=== PATIENT | female | born 1970 | race Caucasian/White ===

== ENCOUNTER → 2023-08-10 14:51 | Outpatient (REF) | payer BC, SELFPAY | LOC: RAD 14:51 | PROVIDERS: ATTENDING PHYSICIAN Nurse Practitioner Family | DX: M79.644 Pain in right finger(s) (principal) | CPT/HCPCS: 73140 ==

== ENCOUNTER → 2024-04-02 17:58 | Outpatient (REF) | payer BC, SELFPAY | LOC: WDC 17:58 | PROVIDERS: ATTENDING PHYSICIAN Obstetrics & Gynecology; FAMILY PHYSICIAN Nurse Practitioner Family | DX: Z12.31 Encounter for screening mammogram for malignant neoplasm of breast (principal) | CPT/HCPCS: 77063; 77067 ==

== ENCOUNTER 2024-10-12 18:28 | Emergency (ER) | payer BC, SELFPAY ==
[2024-10-12 18:35] VITALS: BP 124/79
[2024-10-12 18:53] LABS: % Basophils 0.9 % (0-2); % Eosinophils 0.7 % (0-6); % Lymphocytes 33.5 % (20.5-51.1); % Monocytes 5.7 % (1.7-9.3); % Neutrophils 59.2 % (42.2-75.2); Absolute Basophils 0.1 10^3/uL (0-0.2); Absolute Lymphocytes 1.9 10^3/uL (1.2-3.4); Absolute Monocytes 0.3 10^3/uL (0.1-0.6); Absolute Neutrophils 3.3 10^3/uL (1.4-6.5); Hematocrit 38.6 % (37.0-47.0); Hemoglobin 13.3 g/dL (12.0-16.0); Mean Corp Hgb Conc. 34.5 g/dL (33.0-37.0); Mean Corpuscular Hgb 30.6 pg (27.0-31.0); Mean Corpuscular Volume 88.9 fL (81.0-99.0); Mean Platelet Volume 9.5 fL (7.4-10.4); Nucleated Red Blood Cells % 0 %; Platelet Count 234 10^3/uL (130-400); Red Blood Cell Count 4.34 10^6/uL (4.20-5.40); Red Cell Dist. Width 12.3 % (11.5-14.5); White Blood Cell Count 5.6 10^3/uL (4.8-10.8)
[2024-10-12 18:55] LABS: Urine Albumin Negative (Neg - Trace); Urine Bilirubin Negative (Negative); Urine Character Clear (Clear); Urine Color Yellow; Urine Glucose Negative (Negative); Urine Ketone Negative (Negative); Urine Leukocyte 3+ (Negative); Urine Nitrite Negative (Negative); Urine Occult Blood 2+ (Negative); Urine Urobilinogen Negative (Neg - 1+)
[2024-10-12 19:04] LABS: HCG, Serum Qualitative Screen Negative
[2024-10-12 19:05] LABS: Urine Squamous Cell >30 /LPF (Few)
[2024-10-12 19:06] LABS: Urine White Cell 30-40 /HPF (0-5)
[2024-10-12 19:08] LABS: ALT (SGPT) 37 U/L (0-35); AST (SGOT) 24 U/L (14-36); Albumin 4.4 g/dl (3.5-5.0); Alkaline Phosphatase 68 U/L (38-126); Blood Urea Nitrogen 16 mg/dl (7-17); Calcium 9.1 mg/dl (8.4-10.2); Carbon Dioxide 22 mmol/L (22-30); Chloride 109 mmol/L (98-107); Glucose 123 mg/dl (70-99); Potassium 4.4 mmol/L (3.5-5.1); Sodium 140 mmol/L (135-145); Total Bilirubin 0.5 mg/dl (0.2-1.3); Total Protein 7.4 g/dl (6.3-8.2); Urine Bacteria Moderate (Negative); eGFR 53.13
[2024-10-12 19:09] LABS: Lipase 231 U/L (23-300)
--- NOTE | 2024-10-12 22:22 | ED.GENMED ---
History of Present Illness
General
Chief Complaint: Abdominal Pain
Source: patient
Exam Limitations: none
Time Seen by Provider: 10/12/24 21:08
Nursing documentation reviewed up to this point in time: agreed with
History of Present Illness
History of Present Illness:
54-year-old female presenting to the emergency department today with concerns of constipation over the past 10 days. Has tried MiraLAX 2 enemas and mag citrate without improvement. She does have some ongoing bloating denies any nausea vomiting no
fevers.
Past History
Past History
ED Past Medical History: Hypothyroidism
ED Past Surgical History: Orthopedic
Review of Systems
Review of Systems
Allergies reviewed?: Yes
All Other Systems: ROS reviewed and negative except as documented in HPI and ROS
Phy Exam
Physical Exam
Physical Exam:
GENERAL: Alert , in no apparent distress
EYE: pupils equal and reactive
NECK: Supple, no significant adenopathy.
ENT: o/p clr, mmm.
CARDIAC: Regular rate and rhythm .
LUNGS: Clear breath sounds bilaterally, no acute respiratory distress, no wheezes/rales/rhonchi
ABDOMEN: Soft, without focal tenderness, no r/g, no cvat
NEUROLOGICAL: Alert and oriented, no focal neuro deficits
SKIN: Warm and dry, skin intact.
MUSCULOSKELETAL: No edema, well perfused.
PSYCH: Normal and appropriate interaction.
Course
Orders/Labs/Results
Orders:
Orders
10/12/24 18:38
Obstruct Series W/PA Chest [CR Obstruct Series W/pa Chest] Urgent
Comment:
Reason For Exam: CONSTIPATION
10/12/24 18:39
Test Result ONCE
10/12/24 18:43
Complete Blood Count/With Diff Urgent
Comprehensive Metabolic Panel Urgent
HCG, Serum Qualitative Screen Urgent
Comment: Notify provider if positive test present
Lipase Urgent
Urinalysis Reflex To Culture Urgent
Date Specimen was Collected: 10/12/24
Time Specimen was Collected: 18:39
Urine Microscopic Reflex Cult Urgent
Urine Culture Urgent
NITA Source: U
Specimen Description:
Date Specimen was Collected: 10/12/24
Time Specimen was Collected: 18:39
Abnormal Lab Results
10/12/24
18:43
Chloride 109 H mmol/L
(98-107)
Creatinine 1.2 H mg/dL
(0.6-1.0)
Glucose 123 H mg/dl
(70-99)
ALT 37 H U/L
(0-35)
Ur Occult Blood Reflex 2+ A
(Negative)
Leukocyte Esterase Rfl 3+ A
(Negative)
Urine RBC 3-6 A /HPF
(0-2)
Urine WBC (Reflex) 30-40 A /HPF
(0-5)
Urine Bacteria (Reflex) Moderate A
(Negative)
10/12/24 18:43
10/12/24 18:43
Vital Signs
Initial and Last Documented VS:
Initial Vital Signs
Temp Pulse Resp BP Pulse Ox
98.4 F 87 16 124/79 98
10/12/24 18:35 10/12/24 18:35 10/12/24 18:35 10/12/24 18:35 10/12/24 18:35
Last Documented Vital Signs
Temp Pulse Resp BP Pulse Ox
98.4 F 87 16 124/79 98
10/12/24 18:35 10/12/24 18:35 10/12/24 18:35 10/12/24 18:35 10/12/24 18:35
MDM/Problems Addressed
MDM/Problems Addressed:
54-year-old female presenting to the emergency department today with concerns of decreased bowel movements over the past 10 days has had some bowel movements but does feel some degree of ongoing bloating. No nausea or vomiting. Has taken multiple
medications to help with symptoms. Here she is in no distress labs unremarkable abdomen is soft. The usefulness of a CT scan was explained to the patient. It was offered to get a CT scan today she claims that she would rather try some more
treatments at home but otherwise will come back if symptoms worsened. I feel this is reasonable. Otherwise she was advised to follow-up closely with GI. Return precautions given.
*Critical Care Note
Total Time (30-74mins, 75-104mins- exclusive of procedures): Not Applicable
ED Attending Note
-
Portions of this chart may have been created with voice recognition software.� Occasional wrong word or��sound alike� substitutions may have occurred due to the inherent limitations of voice recognition software.
Discharge Plan
Departure
Patient Disposition: Home (Routine Discharge)
Date of Disposition: 10/12/24
Time of Disposition: 22:27
Patient with high blood pressure during this ER visit?: No
Condition: Good
Covid-19: Not Applicable
Discharge Problem:
Constipation
Instructions: Constipation, Adult (DC)
Prescriptions:
New
lactulose 10 gram/15 mL solution
10 g PO DAILY PRN (Reason: Constipation) Qty: 1200 0RF
bisacodyl [Dulcolax (bisacodyl)] 10 mg suppository
10 mg ID DAILY PRN (Reason: constipation) Qty: 12 0RF
No Action
oxycodone-acetaminophen 5 MG/325 MG tablet
1 tab PO Q6HPRN PRN (Reason: pain) Qty: 12 0RF
Referrals:
Lorene Sky CRNP [Family Provider] -
Kane Mckeon MD [Active] - Follow up in 5-7 days
Activity Restrictions/Additional Instructions:
You came to the emergency department today with concerns of constipation. Please take the prescribed medications and follow-up closely with GI. Return for any worsening, new or concerning symptoms.
Interventions
Interventions:
*Risk Screen - Suicide Last Done: 10/12/24 18:35
*Neglect/Abuse Screening Last Done: 10/12/24 18:35
Discharge Date and Time
Print Language: GREEK
[2024-10-12 22:51] VITALS: BP 107/78
== END 2024-10-12 22:51 | disposition home or self-care (01) ==
LOC: EMR 18:28
PROVIDERS: Student in an Organized Health Care Education/Training Program; EMERGENCY PHYSICIAN Student in an Organized Health Care Education/Training Program; FAMILY PHYSICIAN Nurse Practitioner Family
DX: K59.00 Constipation, unspecified (principal)
CPT/HCPCS: 99284; 74022; 80053; 81003; 81015; 83690; 84703; 85025; 87086

== ENCOUNTER 2024-10-17 16:26 | Emergency (ER) | payer BC, SELFPAY ==
[2024-10-17 16:28] VITALS: BP 125/83
[2024-10-17 18:00] VITALS: BP 118/78
[2024-10-17 19:11] LABS: % Basophils 0.8 % (0-2); % Eosinophils 0.8 % (0-6); % Immature Granulocytes 0.2 % (0-0.5); % Lymphocytes 44.8 % (20.5-51.1); % Monocytes 7.1 % (1.7-9.3); % Neutrophils 46.3 % (42.2-75.2); Absolute Lymphocytes 2.2 10^3/uL (1.2-3.4); Absolute Monocytes 0.4 10^3/uL (0.1-0.6); Absolute Neutrophils 2.3 10^3/uL (1.4-6.5); Hemoglobin 12.4 g/dL (12.0-16.0); Mean Corp Hgb Conc. 34.4 g/dL (33.0-37.0); Mean Corpuscular Hgb 30.6 pg (27.0-31.0); Mean Corpuscular Volume 88.9 fL (81.0-99.0); Mean Platelet Volume 9.7 fL (7.4-10.4); Nucleated Red Blood Cells % 0 %; Platelet Count 202 10^3/uL (130-400); Red Blood Cell Count 4.05 10^6/uL (4.20-5.40); Red Cell Dist. Width 12.4 % (11.5-14.5)
[2024-10-17 19:24] LABS: ALT (SGPT) 27 U/L (0-35); AST (SGOT) 28 U/L (14-36); Albumin 4.4 g/dl (3.5-5.0); Alkaline Phosphatase 78 U/L (38-126); Blood Urea Nitrogen 12 mg/dl (7-17); Carbon Dioxide 25 mmol/L (22-30); Chloride 109 mmol/L (98-107); Glucose 95 mg/dl (70-99); Sodium 138 mmol/L (135-145); Total Bilirubin 0.6 mg/dl (0.2-1.3); Total Protein 7.1 g/dl (6.3-8.2); eGFR > 60.00
[2024-10-17 19:25] LABS: Lipase 206 U/L (23-300)
[2024-10-17 20:00] VITALS: BP 128/68
[2024-10-17] MEDS: OMNIPAQUE 50 ML PO (20:00)
[2024-10-17 22:00] VITALS: BP 118/78
--- NOTE | 2024-10-17 23:31 | ED.GENMED ---
History of Present Illness
General
Chief Complaint: Bowel Problem
Source: patient
Exam Limitations: none
Time Seen by Provider: 10/17/24 18:44
Nursing documentation reviewed up to this point in time: agreed with
History of Present Illness
History of Present Illness:
Patient to ED wt complaint of constipation. Symptoms have been ongoing for the past few weeks. She was seen in ED for this, discharged home on miralax and lactulose. SHe states she has passed a small amt of stool but still feels constipated.
to ED accompanied by spouse for eval. Denies any abd. hernández
Past History
Past History
ED Past Medical History: Hypothyroidism
ED Past Surgical History: Orthopedic
Review of Systems
Review of Systems
Allergies reviewed?: Yes
All Other Systems: ROS reviewed and negative except as documented in HPI and ROS
Constitutional: Reports no symptoms
EENT: Reports no symptoms
Respiratory: Reports no symptoms
Cardiac: Reports no symptoms
ABD/GI: Reports constipated
Musculoskeletal: Reports no symptoms
Skin: Reports no symptoms
Neurological: Reports no symptoms
Psychiatric: Reports no symptoms
Phy Exam
General Physical Exam
General Presentation: well appearing and no apparent distress
General age: appears stated age
General Skin: warm and dry
General Habitus: normal
General Mental: alert
Cardiovascular Exam
Cardiovascular Exam: regular rate/rhythm
Gastrointestinal Exam
Gastrointestinal Exam: normal bowel sounds, non tender, soft, no organomegaly, no pulsatile mass, non distended and no cva tenderness
Rectal Exam: normal external exam, normal sphincter tone and no stool
Musculoskeletal Exam
Musculoskeletal Exam: full ROM and neuro vasc intact
Skin Exam
Skin Exam: normal color, warm/dry and no rash
Psychiatric Exam
Psychiatric Exam: normal mood/affect
Course
Orders/Labs/Results
Orders:
Orders
10/17/24 18:54
Abdomen Xray - 1 View [CR Abdomen - 1 View] Urgent
Comment:
Reason For Exam: bloating
10/17/24 19:00
Complete Blood Count/With Diff Urgent
Comprehensive Metabolic Panel Urgent
Lipase Urgent
10/17/24 19:51
Iohexol [Omnipaque] See Protocol PO NOW STA
10/17/24 19:52
CT Abd/pel W Iv And Oral Contr Urgent
Comment:
Reason For Exam: pain, bloating
Abnormal Lab Results
10/17/24
19:00
RBC 4.05 L 10^6/uL
(4.20-5.40)
Hct 36.0 L %
(37.0-47.0)
Chloride 109 H mmol/L
(98-107)
10/17/24 19:00
10/17/24 19:00
Vital Signs
Initial and Last Documented VS:
Initial Vital Signs
Temp Pulse Resp BP Pulse Ox
97.9 F 76 16 125/83 100
10/17/24 16:28 10/17/24 16:28 10/17/24 16:28 10/17/24 16:28 10/17/24 16:28
Last Documented Vital Signs
Temp Pulse Resp BP Pulse Ox
97.9 F 78 16 118/78 99
10/17/24 16:28 10/17/24 22:00 10/17/24 22:00 10/17/24 22:00 10/17/24 22:00
*Radiology
Radiology exam reviewed: radiology read reviewed
*Critical Care Note
Total Time (30-74mins, 75-104mins- exclusive of procedures): Not Applicable
Update Note
Update Note:
Patient to ED wtih complaint of constipation. Rectal exam completed, no stool noted. Sent for CT which notes average amt of stool in colon, none in rectum. Also notes pancreatic cyts. DIscussed CT findings with patient ant spouse. Will be
discharging home. She can continue miralax and encouraged to increase her water intake. SHe has an appt with GI scheduled for next week and agrees to follow through with appt and obtain MRI for further eval of her pancreas. given instructions on
s/s to reutnr to ED and she is agreeable to plan.
ED Attending Note
-
Portions of this chart may have been created with voice recognition software.� Occasional wrong word or��sound alike� substitutions may have occurred due to the inherent limitations of voice recognition software.
Discharge Plan
Departure
Patient Disposition: Home (Routine Discharge)
Date of Disposition: 10/17/24
Time of Disposition: 23:26
Patient with high blood pressure during this ER visit?: No
Discharge Problem:
Constipated
Instructions: Constipation, Adult (DC)
Prescriptions:
No Action
oxycodone-acetaminophen 5 MG/325 MG tablet
1 tab PO Q6HPRN PRN (Reason: pain) Qty: 12 0RF
lactulose 10 gram/15 mL solution
10 g PO DAILY PRN (Reason: Constipation) Qty: 1200 0RF
bisacodyl [Dulcolax (bisacodyl)] 10 mg suppository
10 mg [place] DAILY PRN (Reason: constipation) Qty: 12 0RF
Referrals:
Lorene Sky CRNP [Family Provider] -
Activity Restrictions/Additional Instructions:
Continue Miralax 1-2 times daily. Miralax must be taken with a large amt of water to be effective.
Follow up [facility] GI next week as scheduled.
As we discussed. Your CT scan show a small cyst like structure on your pancreas. The radiologist recommends an MRI to better visualize you pancreas. THis test can be ordered through your family doctor or your GI specialist.
Interventions
Interventions:
*Risk Screen - Suicide Last Done: 10/17/24 18:52
*General Assessment Last Done: 10/17/24 18:52
*Neglect/Abuse Screening Last Done: 10/17/24 18:52
*ED- Fall Risk Assessment Last Done: 10/17/24 18:52
[facility] Assessment Last Done: 10/17/24 18:52
Discharge Date and Time
Print Language: MALAWIAN
[2024-10-17 23:50] VITALS: BP 118/78
== END 2024-10-17 23:51 | disposition home or self-care (01) ==
LOC: EMR 16:26
PROVIDERS: Nurse Practitioner; EMERGENCY PHYSICIAN Emergency Medicine; FAMILY PHYSICIAN Nurse Practitioner Family
DX: K59.00 Constipation, unspecified (principal)
CPT/HCPCS: 99285; 74018; 74177; 80053; 83690; 85025; Q9967

== ENCOUNTER 2024-10-31 06:22 | Day surgery (SDC) | payer BC, SELFPAY | END 2024-10-31 14:59 | disposition home or self-care (01) | LOC: GI 06:22 | PROVIDERS: ATTENDING PHYSICIAN Internal Medicine | DX: R19.4 Change in bowel habit (principal); R10.13 Epigastric pain; K29.70 Gastritis, unspecified, without bleeding; D12.2 Benign neoplasm of ascending colon; D12.3 Benign neoplasm of transverse colon | CPT/HCPCS: 45385; 45380; 43239; 88305; 88342 ==

== ENCOUNTER 2025-01-23 06:19 | Day surgery (SDC) | payer BC, SELFPAY ==
[2025-01-23 09:53] VITALS: BP 121/79
[2025-01-23 11:15] VITALS: BP 86/68
[2025-01-23 11:17] VITALS: BP 101/75
[2025-01-23 11:30] VITALS: BP 102/66
[2025-01-23 11:39] VITALS: BP 112/79
== END 2025-01-23 12:00 | disposition home or self-care (01) ==
LOC: SDS 06:19
PROVIDERS: ATTENDING PHYSICIAN Internal Medicine Gastroenterology
DX: K86.2 Cyst of pancreas (principal); K83.8 Other specified diseases of biliary tract; K86.89 Other specified diseases of pancreas
CPT/HCPCS: 43238

== ENCOUNTER → 2025-03-29 12:48 | Outpatient (REF) | payer BC, SELFPAY | LOC: PAVMRI 12:48 | PROVIDERS: ATTENDING PHYSICIAN Physician Assistant Surgical; FAMILY PHYSICIAN Nurse Practitioner Family | DX: M25.512 Pain in left shoulder (principal); M54.12 Radiculopathy, cervical region | CPT/HCPCS: 72141; 73221 ==

== ENCOUNTER → 2025-04-08 19:57 | Outpatient (REF) | payer BC, SELFPAY | LOC: PAVMRI 19:57 | PROVIDERS: ATTENDING PHYSICIAN Physician Assistant Surgical; FAMILY PHYSICIAN Nurse Practitioner Family | DX: M25.511 Pain in right shoulder (principal) | CPT/HCPCS: 73221 ==